=== PATIENT | female | born 1955 | race Caucasian/White ===

== ENCOUNTER 2017-05-13 20:25 | Emergency (ER) | payer BC ==
[2017-05-13 20:48] VITALS: BP 96/71
== END 2017-05-13 21:01 | disposition left against medical advice (07) ==
LOC: UCEAST 20:25
DX: T14.8 Other injury of unspecified body region (principal); W57.XXXA Bitten or stung by nonvenomous insect and other nonvenomous arthropods, initial encounter; Y93.9 Activity, unspecified; Y92.9 Unspecified place or not applicable; Z53.21 Procedure and treatment not carried out due to patient leaving prior to being seen by health care provider